=== PATIENT | female | born 1945 | race Two or more races ===

== ENCOUNTER 2025-07-05 06:45 | Day surgery (SDC) | payer MEDICARE, MEDICAID, SELFPAY ==
[2025-07-04 14:12] VITALS: BMI 23.0
[2025-07-05] VITALS (8 sets, daily range): BP systolic 127–162; BP diastolic 73–92; PULSE 74–112; RESP 15–20; TEMP 36.4–36.6; O2SAT 97–100; BMI 23.8
[2025-07-05] MEDS: MIDAZOLAM INJ 1 MG/ML VIAL 2 ML (ASD USE ONLY) 2 MG IVP (07:34)
[2025-07-05] MEDS: SODIUM CHLORIDE 0.9% 500 ML 500 ML 20 ML IV (07:34)
[2025-07-05] MEDS: fentaNYL CIT INJ 50 mCg/ML AMP 2ML (ASD USE ONLY) IVP (07:35)
--- NOTE | 2025-07-05 07:45 | SUR.PHASEII ---
Pt arrived to PACU, report received from MARCE Betancourt. No acute distress noted. Pt able to responds to simple commands and drifted back to sleep.
--- NOTE | 2025-07-05 08:05 | SUR.PHASEII ---
PT MORE AWAKE, TOLERATING ORAL FLUID INTAKE.
--- NOTE | 2025-07-05 08:28 | SUR.PHASEII ---
D/C INSTRUCTIONS REVIEWED WITH PT AND DAUGHTER BY MARCE COTA.
== END 2025-07-05 08:32 | disposition home or self-care (01) ==
PROVIDERS: Referring Provider Surgery; Visit Provider Surgery
PROC: 0DBE8ZX Excision of Large Intestine, Via Natural or Artificial Opening Endoscopic, Diagnostic (ICD-10-PCS; CPT 45380; principal; 2025-07-05 07:30)
DX: R19.5 Other fecal abnormalities (principal); K64.1 Second degree hemorrhoids; K57.30 Diverticulosis of large intestine without perforation or abscess without bleeding; E78.00 Pure hypercholesterolemia, unspecified; I10 Essential (primary) hypertension
CPT/HCPCS: 45378; J1200; J2250; J3010; J7999